=== PATIENT | female | born 1945 | race Caucasian/White ===

== ENCOUNTER 2021-03-04 00:23 | Inpatient (IN) ==
[2021-03-04] MEDS ORDERED: Ondansetron 4 mg VIAL 2 MG/ML 2 ml VIAL IV PRN ×2 (01:27→13:43)
[2021-03-04] MEDS ORDERED: Heparin 5000 UNITS/ML 1 mL VIAL SUBCUT SCH ×2 (02:00→06:00)
[2021-03-04 06:05] LABS: ABS Lymphocytes 0.8 10^3/ul (1.0-4.8); ABS Monocytes 0.6 10^3/ul (0-0.8); ABS Neutrophils 7.8 10^3/ul (1.5-7.7); Hematocrit 45 % (35-47); Hemoglobin 15.4 g/dL (12.0-16.0); Mean Corpuscular HGB Conc 34 g/dL (31-36); Mean Corpuscular Hemoglobin 33 pg (27-31); Mean Corpuscular Volume 97 fL (80-97); Mean Platelet Volume 9.1 fL (7.4-10.4); Platelet Count 129 10^3/uL (150-450); Red Blood Count 4.61 10^6 /uL (3.70-4.87); Red Cell Distribution Width 14 % (10-15); White Blood Count 9.2 10^3/uL (3.5-10.8)
[2021-03-04 06:12] LABS: INR 1.28 (0.82-1.09)
[2021-03-04] MEDS ORDERED: Morphine 2 MG/ML SYRINGE IV PRN (06:13)
[2021-03-04 06:22] LABS: Calcium 9.2 mg/dL (8.6-10.3); EGFR African American 77.6 (>60); EGFR Non-African American 64.2 (>60); Potassium 4.6 mmol/L (3.5-5.0)
[2021-03-04] MEDS: Acetaminophen IV 1 GM/100ML 100 ML IVPB SCH ×3 (06:32→23:08)
[2021-03-04] MEDS: NS 0.9% 1000 ml BAG 1,000 ML IV SCH ×2 (06:33→16:53)
[2021-03-04 08:07] LABS: Magnesium 1.7 mg/dL (1.9-2.7)
[2021-03-04 08:35] LABS: Urine Appearance Cloudy; Urine Bilirubin Negative (Negative); Urine Blood Negative (Negative); Urine Color Yellow; Urine Glucose Negative (Negative); Urine Ketones Negative (Negative); Urine Nitrite Negative (Negative); Urine Protein 2+(100 mg/dL) (Negative); Urine Urobilinogen Negative (Negative)
[2021-03-04 08:38] LABS: Urine Bacteria Absent (Absent); Urine Red Blood Cell 1+(3-5/hpf) (Absent); Urine Squamous Epithelial Cell Present (Absent); Urine White Blood Cell Trace(0-5/hpf) (Absent)
[2021-03-04] MEDS ORDERED: Magnesium Sulfate IV 3 GM in NS 0.9% 100 ml BAG 100 ML IVPB ONE (09:30)
[2021-03-04] MEDS ORDERED: Midazolam 2 mg/2 ml VIAL 1 mg/ml 2 ml VIAL (2 mg) ONE (11:42)
[2021-03-04] MEDS ORDERED: Rocuronium 50 mg VIAL 10 mg/ml 5 ml VIAL (50 mg) ONE (11:42)
[2021-03-04] MEDS ORDERED: fentaNYL 250 mcg/5 ml 50 MCG/ML 5 ml VIAL (250 MCG) ONE (11:43)
[2021-03-04] MEDS ORDERED: Lidocaine 2% PF 5 ML VIAL ONE (11:49)
[2021-03-04] MEDS ORDERED: Dexamethasone IV 4 MG/ML VIAL 1 ml VIAL ONE (11:49)
[2021-03-04] MEDS ORDERED: Propofol 10 MG/ML 20 ML BTL ONE (11:49)
[2021-03-04] MEDS ORDERED: Ketamine HCL 50 mg/ml 10 ml VIAL (500 MG) ONE (12:21)
[2021-03-04] MEDS ORDERED: Bupivacaine 0.5% SDV PF 30ML VIAL ONE (12:22)
[2021-03-04] MEDS ORDERED: ceFAZolin 2 GM PREMIX 2 GM/50 ML BAG ONE (12:30)
[2021-03-04] MEDS ORDERED: Famotidine IV 10 MG/ML 2 ml VIAL (20 mg) ONE (12:41)
[2021-03-04] MEDS ORDERED: Ondansetron 4 mg VIAL 2 MG/ML 2 ml VIAL ONE (12:41)
[2021-03-04 13:13] LABS: Vitamin D Total 25(OH) 33.9 ng/mL (20-50)
[2021-03-04] MEDS ORDERED: Phenylephrine 40 mcg/mL 10mL (400mcg) SYRINGE ONE (13:32)
[2021-03-04] MEDS ORDERED: Naloxone 0.4 mg VIAL 0.4 mg/ml 1 ml VIAL IV PRN (13:43)
[2021-03-04] MEDS ORDERED: HYDROmorphone 1 MG/1 ML SYRINGE IV PRN (13:43)
[2021-03-04] MEDS ORDERED: fentaNYL 100 mcg/2 ml 50 MCG/ML VIAL IV PRN (13:43)
[2021-03-04] MEDS ORDERED: Acetaminophen IV 1 GM/100ML 1,000 MG/100 ML VIAL IVPB PRN (13:43)
[2021-03-04] MEDS ORDERED: Prochlorperazine 5 mg/ml 2 ml VIAL (10 mg) IV ONE (16:42)
[2021-03-04] MEDS ORDERED: Magnesium Hydroxide LIQ 30 ML UDC PO PRN (16:46)
[2021-03-04] MEDS ORDERED: Senna TAB 8.6 mg TAB PO PRN (16:46)
[2021-03-04] MEDS: HYDROcodone/ACETAMIN 5/325 mg TAB PO PRN (17:22)
[2021-03-04] MEDS: ceFAZolin 1 GM in Dextrose 1 GM/50 ML BAG IVPB SCH (20:19)
[2021-03-05] MEDS: ceFAZolin 1 GM in Dextrose 1 GM/50 ML BAG IVPB SCH ×2 (05:35→13:12)
[2021-03-05 05:53] LABS: ABS Lymphocytes 1.4 10^3/ul (1.0-4.8); ABS Monocytes 0.7 10^3/ul (0-0.8); ABS Neutrophils 8.5 10^3/ul (1.5-7.7); Hematocrit 42 % (35-47); Hemoglobin 14.1 g/dL (12.0-16.0); Lymphocyte % 13.1 %; Mean Corpuscular HGB Conc 34 g/dL (31-36); Mean Corpuscular Hemoglobin 33 pg (27-31); Mean Corpuscular Volume 99 fL (80-97); Mean Platelet Volume 9.8 fL (7.4-10.4); Nucleated Red Blood Cells % 0.1; Platelet Count 103 10^3/uL (150-450); Red Blood Count 4.24 10^6 /uL (3.70-4.87); Red Cell Distribution Width 14 % (10-15); White Blood Count 10.7 10^3/uL (3.5-10.8)
[2021-03-05 06:11] LABS: Albumin 3.4 g/dL (3.2-5.2); Albumin/Globulin Ratio 1.1 (1-3); Calcium 8.6 mg/dL (8.6-10.3); EGFR African American 74.6 (>60); EGFR Non-African American 61.7 (>60); Globulin 3.2 g/dL (2-4); Potassium 4.3 mmol/L (3.5-5.0); Total Bilirubin 0.9 mg/dL (0.2-1.0); Total Protein 6.6 g/dL (6.4-8.9)
[2021-03-05] MEDS: NS 0.9% 1000 ml BAG 1,000 ML IV SCH (07:30)
[2021-03-05] MEDS: Enoxaparin 40 MG/0.4 ML SYR SUBCUT SCH (08:31)
[2021-03-05] MEDS: Polyethylene Glycol 3350 17 GM PACKET PO SCH (11:40)
[2021-03-05] MEDS: HYDROcodone/ACETAMIN 5/325 mg TAB PO PRN (15:10)
[2021-03-06] MEDS: HYDROcodone/ACETAMIN 5/325 mg TAB PO PRN ×2 (07:46→14:39)
[2021-03-06] MEDS: cefTRIAXone 1 gm/50 mL NS BAG 1 GM/50 ML BAG IVPB SCH (08:58)
[2021-03-06] MEDS: Polyethylene Glycol 3350 17 GM PACKET PO SCH (09:00)
[2021-03-06] MEDS: Enoxaparin 40 MG/0.4 ML SYR SUBCUT SCH (09:03)
[2021-03-06 09:16] LABS: Hematocrit 40 % (35-47); Hemoglobin 13.4 g/dL (12.0-16.0)
[2021-03-07 06:21] LABS: ABS Basophils 0.1 10^3/ul (0-0.2); ABS Eosinophils 0.1 10^3/ul (0-0.6); ABS Lymphocytes 1.8 10^3/ul (1.0-4.8); ABS Monocytes 0.7 10^3/ul (0-0.8); ABS Neutrophils 5.2 10^3/ul (1.5-7.7); Eosinophil % 1.1 %; Hematocrit 37 % (35-47); Hemoglobin 12.4 g/dL (12.0-16.0); Lymphocyte % 23.6 %; Mean Corpuscular HGB Conc 34 g/dL (31-36); Mean Corpuscular Hemoglobin 33 pg (27-31); Mean Corpuscular Volume 98 fL (80-97); Mean Platelet Volume 9.2 fL (7.4-10.4); Nucleated Red Blood Cells % 0.1; Platelet Count 103 10^3/uL (150-450); Red Blood Count 3.72 10^6 /uL (3.70-4.87); Red Cell Distribution Width 15 % (10-15); White Blood Count 7.8 10^3/uL (3.5-10.8)
[2021-03-07] MEDS: Enoxaparin 40 MG/0.4 ML SYR SUBCUT SCH (09:19)
[2021-03-07] MEDS: cefTRIAXone 1 gm/50 mL NS BAG 1 GM/50 ML BAG IVPB SCH (09:19)
[2021-03-07] MEDS: Polyethylene Glycol 3350 17 GM PACKET PO SCH (09:19)
[2021-03-07 11:21] VITALS: BP 116/76
[2021-03-07] MEDS: HYDROcodone/ACETAMIN 5/325 mg TAB PO PRN (13:24)
== END 2021-03-07 14:12 | disposition swing bed (61) | DRG 481 ==
LOC: ED 00:23 → SSU 04:28
PROVIDERS: ADMIT Internal Medicine; ATTEND Pediatrics